=== PATIENT | male | born 1990 | race Caucasian/White ===

== ENCOUNTER 2017-07-05 16:29 | Emergency (ER) | payer OTHER ==
--- NOTE | 2017-07-05 16:44 | EDM.PDOC ---
ED HPI GENERAL MEDICAL PROBLEM - General Chief Complaint: Lower Extremity Injury/Pain Stated Complaint: LT LEG INJURY Time Seen by Provider: 07/05/17 16:44 - History of Present Illness INITIAL COMMENTS - FREE TEXT/NARRATIVE: 27-year-old male presents emergency room with left thigh and knee pain. Patient injured his leg at work last night. Patient works night shifts. Patient was moving a large metal object that fell and caught him on his lower leg in an attempt to get away from this he strained his upper leg heard a pop. Since that time he's had difficulty with ambulation however he gets around to some degree without to much trouble. The patient was kept up all day today as he was trying to sleep because of the discomfort. Left Leg Pain Score (Numeric/FACES): 5 - Related Data Allergies Allergy/AdvReac Type Severity Reaction Status Date / Time No Known Allergies Allergy Verified 07/05/17 16:39 Home Meds: Home Meds cloNIDine [Catapres] 0.2 mg PO DAILY 07/05/17 [History] Review of Systems - Review of Systems Review Of Systems: See Below Constitutional: Reports: No Symptoms Respiratory: Reports: No Symptoms Cardiovascular: Reports: No Symptoms GI/Abdominal: Reports: No Symptoms ED EXAM, GENERAL - Physical Exam Exam: See Below Exam Limited By: No Limitations General Appearance: Alert, No Apparent Distress Respiratory/Chest: No Respiratory Distress, Lungs Clear, Normal Breath Sounds Cardiovascular: Regular Rate, Rhythm, No Edema, No Murmur Extremities: Other (Patient has no significant injury on his left lower leg no bruising ecchymosis or deformity. No tenderness with palpation. Neurovascular status of the foot is normal. He has some discomfort around his knee no swelling or effusion and most of his pain is in his proximal hip that extends down his thigh to his knee. His knee appears to be intact no joint line discomfort. He has some discomfort with internal rotation and to a lesser degree with external rotation to his hip) Course - Vital Signs Last Recorded V/S: Last Vital Signs Temp 36.2 C 07/05/17 16:39 Pulse 74 07/05/17 16:39 Resp 16 07/05/17 16:39 BP 136/77 07/05/17 16:39 Pulse Ox 99 07/05/17 16:39 - Orders/Labs/Meds Orders: Active Orders 24 hr Category Date Time Status Femur Min 2V Lt [CR] Stat Exams 07/05/17 17:02 Taken Knee 3V Lt [CR] Stat Exams 07/05/17 17:02 Taken - Re-Assessments/Exams Free Text/Narrative Re-Assessment/Exam: 07/05/17 19:03 X-ray examination of the knee and femur are unremarkable. Patient be returned to work light duty he requests pain medications and get some sleep he'll be given 10 [place] from the machine in the waiting room 1 to be used when he gets off work. He will use ibuprofen 800 mg 3 times a day with meals. He will be placed on light duty. Departure - Departure Time of Disposition: 18:47 Disposition: Home, Self-Care 01 Clinical Impression: Strain of left hip and thigh, Left knee injury - Discharge Information Referrals: PCP,None [Primary Care Provider] - Forms: ED Department Discharge Additional Instructions: Return to the emergency room with any questions problems worsening symptoms. Follow up with the L&I physician or the Hospital clinic [phone] later this week for recheck. Use ibuprofen 800 mg 3 times daily take this 3 times a day. Use the pain pill after you get off work so you can get some rest. Allow 12 hours after taking this medication before driving or returning to work. You need to be on light duty at work. I don't want a lifting more than 20 pounds I don't want you lifting anything that involves twisting. And I don't want you climbing on beams or ladders. Sit and/or stand as tolerated. - My Orders Last 24 Hours: My Active Orders 07/05/17 17:02 Femur Min 2V Lt [CR] Stat Knee 3V Lt [CR] Stat - Assessment/Plan Last 24 Hours: My Active Orders 07/05/17 17:02 Femur Min 2V Lt [CR] Stat Knee 3V Lt [CR] Stat
[2017-07-05 16:45] VITALS: BP 136/77
--- NOTE | 2017-07-06 09:23 | CR ---
Left knee: Four views of the left knee were obtained. Comparison: No previous study. Mild medial joint space narrowing is seen. Lateral joint space is preserved. No acute fracture, dislocation or other bony abnormality is seen. No joint effusion is identified. Impression: 1. Mild medial joint space narrowing. 2. Left knee exam is otherwise unremarkable. Diagnostic code #2
--- NOTE | 2017-07-06 09:23 | CR ---
Left femur: AP and lateral views of the left femur were obtained. Comparison: No previous study. Dysplastic bump is seen off the lateral femoral head. Joint space within the lateral aspect of the superior hip is minimally narrowed. No acute fracture or other bony abnormality is seen within the femur. Slight medial joint space narrowing is also noted. Impression: 1. Slight joint space narrowing as noted above. 2. Dysplastic bump as normal variant but can cause hip pain seen off the lateral left femoral head. 3. Nothing acute is appreciated on two-view left femur study. Diagnostic code #2
== END 2017-07-05 19:13 | disposition home or self-care (01) ==
LOC: JD.ED 16:29
DX: S76.012A Strain of muscle, fascia and tendon of left hip, initial encounter (principal); S76.912A Strain of unspecified muscles, fascia and tendons at thigh level, left thigh, initial encounter; S89.92XA Unspecified injury of left lower leg, initial encounter; W20.8XXA Other cause of strike by thrown, projected or falling object, initial encounter
CPT/HCPCS: 73552-26-LT; 73552-LT; 73562-26-LT; 73562-LT; 99283